=== PATIENT | male | born 1955 | race Caucasian/White ===

== ENCOUNTER → 2021-07-19 | Outpatient (CLI) | payer MEDICARE, OTHER ==
[~2021-07-19] MED LIST: ASPI325T87 PO; CARV3 PO; CLOP75TA60 PO; INSU100C4 SQ; NITR0.4T50 SL; PANT-31 PO; RAMI2.5T PO; SIMV-261 PO
== END | disposition home or self-care (01) ==
LOC: RADPV 10:13
PROVIDERS: ATTEND Internal Medicine Cardiovascular Disease
DX: I08.8 Other rheumatic multiple valve diseases (principal); I25.5 Ischemic cardiomyopathy; Z95.0 Presence of cardiac pacemaker
CPT/HCPCS: 93306